=== PATIENT | female | born 1975 | race Caucasian/White ===

== ENCOUNTER 2018-06-15 21:02 | Emergency (ER) | payer OTHER ==
[~2018-06-15] VITALS: Ht 152.4 cm; Wt 90.7 kg
[2018-06-15 21:22] VITALS: Ht 152.4 cm; Wt 90.7 kg
[2018-06-15] MEDS ORDERED: ONDANSETRON 4 MG INJ IV STA (23:40)
[2018-06-15] MEDS ORDERED: morphine 4 MG/ML VIAL IV STA (23:40)
[2018-06-15] MEDS ORDERED: SOD CHLORIDE 0.9% 1,000 ML IV STA (23:40)
[2018-06-16] MEDS ORDERED: RANI150T35 PO (01:02)
[2018-06-16 01:13] VITALS: BP 138/71; PULSE 89; RESP 18
--- NOTE | 2018-06-16 01:18 | ERD ---
ER Documentation Chief Complaint Chief Complaint Upper abd pain x 10 days denies n/v HPI This is a 42-year-old female comes in with epigastric abdominal pain for 10 days getting progressively worse. Pain is mild to moderate intensity with no exacerbating or alleviating factors. Denies nausea vomiting. Denies fevers or chills. Patient is status post cholecystectomy. Denies any sick contacts. Denies any abdominal trauma. Tolerating p.o. Normal bowel movements. ROS All systems reviewed and are negative except as per history of present illness. Medications Home Meds Active Scripts Ranitidine Hcl* (Zantac*) 150 Mg Tablet, 150 MG PO BID PRN for EPIGASTRIC PAIN, #30 TAB Prov:PRESTONKEKE WrightFelipa 06/16/18 Allergies Allergies: Coded Allergies: No Known Allergy (Unverified , 06/15/18) PMhx/Soc History of Surgery: Yes (Gall bladder) Anesthesia Reaction: No Hx Neurological Disorder: No Hx Respiratory Disorders: No Hx Cardiac Disorders: No Hx Psychiatric Problems: No Hx Miscellaneous Medical Probl: No Hx Substance Use: No Hx Tobacco Use: No Smoking Status: Never smoker Physical Exam Vitals Vital Signs Date Temp Pulse Resp B/P (MAP) Pulse Ox O2 O2 Flow FiO2 Time Delivery Rate 06/16/18 89 18 138/71 100 Room Air 01:13 (93) 06/15/18 99.2 72 16 132/60 100 21:22 (84) Physical Exam Const: No acute distress Head: Atraumatic Eyes: Normal Conjunctiva ENT: Normal External Ears, Nose and Mouth. Neck: Full range of motion. No meningismus. Resp: Clear to auscultation bilaterally Cardio: Regular rate and rhythm, no murmurs Abd: Soft, non tender, non distended. Normal bowel sounds Skin: No petechiae or rashes Back: No midline or flank tenderness Ext: No cyanosis, or edema Neur: Awake and alert Psych: Normal Mood and Affect Result Diagram: 06/15/18 2350 06/15/18 2350 Results 24 hrs Laboratory Tests Test 06/15/18 23:49 06/15/18 23:50 POC Beta HCG, Qualitative NEGATIVE White Blood Count 8.9 10^3/ul Red Blood Count 4.48 10^6/ul Hemoglobin 8.9 g/dl Hematocrit 31.3 % Mean Corpuscular Volume 69.9 fl Mean Corpuscular Hemoglobin 19.9 pg Mean Corpuscular Hemoglobin Concent 28.4 g/dl Red Cell Distribution Width 17.8 % Platelet Count 301 10^3/UL Mean Platelet Volume 11.5 fl Immature Granulocytes % 0.300 % Neutrophils % 61.5 % Lymphocytes % 28.5 % Monocytes % 7.8 % Eosinophils % 1.3 % Basophils % 0.6 % Nucleated Red Blood Cells % 0.0 /100WBC Immature Granulocytes # 0.030 10^3/ul Neutrophils # 5.5 10^3/ul Lymphocytes # 2.5 10^3/ul Monocytes # 0.7 10^3/ul Eosinophils # 0.1 10^3/ul Basophils # 0.1 10^3/ul Nucleated Red Blood Cells # 0.0 10^3/ul Urine Color YELLOW Urine Clarity SLIGHTLY CLOUDY Urine pH 5.0 Urine Specific [place] 1.013 Urine Ketones NEGATIVE mg/dL Urine Nitrite NEGATIVE mg/dL Urine Bilirubin NEGATIVE mg/dL Urine Urobilinogen NEGATIVE mg/dL Urine Leukocyte Esterase NEGATIVE [place]/ul Urine Microscopic RBC 4 /HPF Urine Microscopic WBC 0 /HPF Urine Squamous Epithelial Cells FEW /HPF Urine Bacteria FEW /HPF Urine Mucus MODERATE /HPF Urine Hemoglobin 2+ mg/dL Urine Glucose NEGATIVE mg/dL Urine Total Protein NEGATIVE mg/dl Sodium Level 141 mmol/L Potassium Level 3.6 mmol/L Chloride Level 102 mmol/L Carbon Dioxide Level 28 mmol/L Anion Gap 11 Blood Urea Nitrogen 18 mg/dl Creatinine 0.72 mg/dl Est Glomerular Filtrat Rate mL/min > 60 mL/min Glucose Level 97 mg/dl Calcium Level 9.9 mg/dl Total Bilirubin 0.1 mg/dl Direct Bilirubin 0.00 mg/dl Indirect Bilirubin 0.1 mg/dl Aspartate Amino Transf (AST/SGOT) 19 IU/L Alanine Aminotransferase (ALT/SGPT) 14 IU/L Alkaline Phosphatase 68 IU/L Total Protein 7.5 g/dl Albumin 4.4 g/dl Globulin 3.10 g/dl Albumin/Globulin Ratio 1.41 Lipase 66 U/L Current Medications Medications Dose Sig/Yamini Start Time Status Last (Trade) Ordered Route PRN Stop Time Admin Dose Reason Admin Sodium 1,000 ml @ Q1H STAT 06/15/18 DC 06/15/18 Chloride 1,000 mls/hr IV 23:40 4/2/19 23:46 00:39 Morphine 4 mg ONCE STAT 06/15/18 DC 06/15/18 Sulfate IV 23:40 06/15/18 23:46 (morphine) 23:41 Ondansetron 4 mg ONCE STAT 06/15/18 DC 06/15/18 HCl (Zofran IV 23:40 06/15/18 23:46 Inj) 23:41 Procedures/MDM Emergency department course: Patient seen and evaluated triage nurse. Placed in bed from evaluation. Had ultrasound to rule out common bile duct stone. Given pain medication with resolution of pain. Medical decision making: Patient's gastrointestinal symptoms have stabilized while in the department. No evidence of severe dehydration, sepsis, or surgical abdomen. Extensive discussion with family and patient that occult disease cannot be ruled out. 8 hour recheck for repeat abdominal exam is planned. Departure Diagnosis: Primary Impression: Abdominal pain Abdominal location: unspecified location Qualified Codes: R10.9 - Unspecified abdominal pain Condition: Stable Patient Instructions: Gastritis (Adult) KEKE JOHNSTON Jun 16, 2018 01:18
== END 2018-06-16 01:15 | disposition home or self-care (01) ==
LOC: E/R 21:02
DX: R10.9 Unspecified abdominal pain (principal)
CPT/HCPCS: 36415; 76705; 80053; 81001; 81025; 83690; 85025; 96374; 96375; J2270; J2405; J7030; Z7502